=== PATIENT | male | born 2000 | race Two or more races ===

== ENCOUNTER 2023-05-23 07:47 | Outpatient (OUT) | payer OTHER, SELFPAY ==
--- NOTE | 2023-05-23 08:08 | XR_ITS ---
[address] [address] Patient Name: JAMIN MILLER MRN: [id number] date: 2000 Sex: M Assigned Patient Location: RAD Current Patient Location: [facility] Accession/Order Number: [id number] Exam Date: 05/23/2023 08:20 Report Date: 05/23/2023 12:19 At the request of: ROCIO VILLA Procedure: XR shoulder LT min 2V EXAM: XR shoulder LT min 2V HISTORY: Acute Pain OF Left Shoulder COMPARISON: None. TECHNIQUE: 3 views FINDINGS: No acute fracture. No significant degenerative changes. Apparent widening of the AC joint. Unremarkable soft tissues. XR/XR shoulder LT min 2V IMPRESSION: Apparent widening of the AC joint may suggest ligamentous injury. Clinical correlation is recommended. Electronically authenticated by: MARIANNE EUGENE Date: 05/23/2023 12:19
== END 2023-05-23 07:48 | disposition home or self-care (01) ==
PROVIDERS: Visit Provider Orthopaedic Surgery
DX: M25.512 Pain in left shoulder (principal)
CPT/HCPCS: 73030

== ENCOUNTER 2023-06-06 07:37 | Outpatient (OUT) | payer OTHER, SELFPAY ==
--- NOTE | 2023-06-06 07:55 | XR_ITS ---
The [address] [address] Patient Name: JAMIN MILLER MRN: [id number] date: 2000 Sex: M Assigned Patient Location: [facility] Current Patient Location: [facility] Accession/Order Number: [id number] Exam Date: 06/06/2023 07:50 Report Date: 06/06/2023 09:42 At the request of: ROCIO VILLA Procedure: XR ribs LT 2V EXAM: XR ribs LT 2V INDICATION: Left Sided Rib Pain R07.81. COMPARISON: None. TECHNIQUE: Left rib series with frontal view of the chest FINDINGS: No acute displaced rib fracture identified. No osseous lytic or blastic lesion. Normal cardiomediastinal contours. Clear lungs. No pleural effusion or pneumothorax. XR/XR ribs LT 2V IMPRESSION: 1. Normal left rib series. 2. No acute cardiopulmonary process. Electronically authenticated by: KRISTY COHEN Date: 06/06/2023 09:42
== END 2023-06-06 07:38 | disposition home or self-care (01) ==
LOC: RAD 07:39
PROVIDERS: Visit Provider Orthopaedic Surgery
DX: R07.81 Pleurodynia (principal)
CPT/HCPCS: 71100